=== PATIENT | female | born 1950 | race Caucasian/White ===

== ENCOUNTER 2020-12-24 20:59 | Emergency (ER) | payer OTHER ==
[2020-12-24 21:11] VITALS: TEMP 98.7; BMI 25.7
[2020-12-24] MEDS ORDERED: FAMOTIDINE 20 MG/50 ML IVPB 20 MG/50 ML MG IVPB ONE ×2 (22:19→22:22)
[2020-12-24] MEDS ORDERED: ONDANSETRON 4 MG/2 ML VIAL ONE (22:22)
[2020-12-24] MEDS ORDERED: ONDANSETRON 4 MG/2 ML VIAL IVPUSH ONE (22:30)
[2020-12-24 22:43] LABS: BASO % 0.7 % (0-2.0); EOS % 1.3 % (0-4.5); HEMATOCRIT 38.3 % (32.4-45.2); HEMOGLOBIN 12.5 GM/dL (10.7-15.3); LYMPH % 40.3 % (8-40); MCH 26.2 pg (25.7-33.7); MCHC 32.7 g/dl (32.0-36.0); MEAN CELL VOLUME 80.1 fl (80-96); MEAN PLT VOLUME 9.9 fl (7.5-11.1); NEUT % 49.7 % (42.8-82.8); PLATELET COUNT 261 K/MM3 (134-434); RBC 4.78 M/mm3 (3.60-5.2)
[2020-12-24 23:07] LABS: ALBUMIN 3.8 g/dl (3.4-5.0); BLOOD UREA NITROGEN 11.8 mg/dL (7-18); CALCIUM 9.3 mg/dL (8.5-10.1)
[2020-12-24 23:11] LABS: CREATININE 0.8 mg/dL (0.55-1.3)
[2020-12-24 23:12] LABS: BILIRUBIN,TOTAL 0.2 mg/dL (0.2-1); TOT PROT 7.4 g/dl (6.4-8.2)
[2020-12-25 01:19] LABS: EPI CELLS >36 /uL (0-25.1); HYALINE CASTS 16 /uL (0-3.1); URINE APPEARANCE CLOUDY; URINE BACTERIA 3700 /uL (0-1359); URINE BILIRUBIN NEGATIVE (NEGATIVE); URINE COLOR YELLOW; URINE GLUCOSE (UA) NEGATIVE (NEGATIVE); URINE KETONE NEGATIVE (NEGATIVE); URINE LEUK ESTERASE 2+ (NEGATIVE); URINE NITRITE NEGATIVE (NEGATIVE); URINE PROTEIN NEGATIVE (NEGATIVE); URINE RBC 7 /uL (0-23.9); URINE UROBILINOGEN 0.2 mg/dL (0.2-1.0); URINE WBC 273 /uL (0-25.8)
[2020-12-25 01:54] VITALS: BP 134/89; PULSE 86
== END 2020-12-25 01:57 | disposition home or self-care (01) ==
LOC: JER 20:59
PROC: 3E033GC Introduction of Other Therapeutic Substance into Peripheral Vein, Percutaneous Approach (ICD-10-PCS; principal; 2020-12-24)
PROC: 3E033GC Introduction of Other Therapeutic Substance into Peripheral Vein, Percutaneous Approach (ICD-10-PCS; 2020-12-24)
DX: R10.10 Upper abdominal pain, unspecified (principal); N30.00 Acute cystitis without hematuria
CPT/HCPCS: 36415; 76705-TC; 80053; 81003; 83690; 84484; 85025; 93005; 93010; 99285-25

== ENCOUNTER 2021-03-30 13:36 | Emergency (ER) | payer OTHER ==
[2021-03-30 13:53] VITALS: BMI 25.7
[2021-03-30] MEDS ORDERED: SODIUM CHLORIDE 0.9% 500 ML INFUS.BAG IV ONE (14:27)
[2021-03-30] MEDS ORDERED: ONDANSETRON 4 MG/2 ML VIAL IVPUSH ONE (14:27)
[2021-03-30] MEDS ORDERED: ONDANSETRON 4 MG/2 ML VIAL ONE (14:47)
[2021-03-30 14:50] LABS: BASO % 0.5 % (0-2.0); EOS % 2.1 % (0-4.5); HEMATOCRIT 40.6 % (32.4-45.2); HEMOGLOBIN 13.1 GM/dL (10.7-15.3); LYMPH % 42.9 % (8-40); MCH 25.6 pg (25.7-33.7); MCHC 32.2 g/dl (32.0-36.0); MEAN CELL VOLUME 79.4 fl (80-96); MEAN PLT VOLUME 10.8 fl (7.5-11.1); NEUT % 40.5 % (42.8-82.8); PLATELET COUNT 172 10^3/uL (134-434); RBC 5.11 M/mm3 (3.60-5.2); RDW 14.2 % (11.6-15.6); WHITE BLOOD COUNT 6.5 K/mm3 (4.0-10.0)
[2021-03-30 15:04] LABS: CALCIUM 8.4 mg/dL (8.5-10.1)
[2021-03-30 15:05] LABS: ALBUMIN 3.5 g/dl (3.4-5.0); BLOOD UREA NITROGEN 17.7 mg/dL (7-18); MAGNESIUM 2.1 mg/dL (1.8-2.4)
[2021-03-30 15:08] LABS: BILIRUBIN,TOTAL 0.2 mg/dL (0.2-1); CREATININE 0.8 mg/dL (0.55-1.3); TOT PROT 6.8 g/dl (6.4-8.2)
[2021-03-30 16:23] VITALS: BP 118/68; PULSE 75; TEMP 98.1
== END 2021-03-30 16:25 | disposition home or self-care (01) ==
LOC: JER 13:36
PROC: 3E033NZ Introduction of Analgesics, Hypnotics, Sedatives into Peripheral Vein, Percutaneous Approach (ICD-10-PCS; principal; 2021-03-30)
DX: K52.9 Noninfective gastroenteritis and colitis, unspecified (principal)
CPT/HCPCS: 36415; 80053; 83690; 83735; 85025; 96374; 99284-25